=== PATIENT | male | born 1960 | race Caucasian/White ===

== ENCOUNTER 2024-11-16 06:52 | Outpatient (CLI) | payer SELFPAY | END 2024-11-16 23:59 | disposition home or self-care (01) | LOC: MRI02 06:52 | PROVIDERS: ATTEND Chiropractor | DX: M47.23 Other spondylosis with radiculopathy, cervicothoracic region (principal); M50.11 Cervical disc disorder with radiculopathy, high cervical region; M50.121 Cervical disc disorder at C4-C5 level with radiculopathy; M50.20 Other cervical disc displacement, unspecified cervical region; M48.03 Spinal stenosis, cervicothoracic region; M25.78 Osteophyte, vertebrae | CPT/HCPCS: 72141 ==